=== PATIENT | female | born 1960 | race Caucasian/White ===

== ENCOUNTER 2016-07-13 21:36 | Emergency (ER) | payer OTHER ==
[~2016-07-13] VITALS: Ht 154.9 cm; Wt 81.8 kg
[~2016-07-13 21:36] MED LIST: GLIP10 PO; LISI-661 PO; METF500T4 PO; SIMV-260 PO
[2016-07-13] MEDS ORDERED: LORazepam 1 MG TABLET PO ONE (22:15)
[2016-07-13 23:11] VITALS: BP 162/88
== END 2016-07-13 23:17 | disposition home or self-care (01) ==
LOC: EMS 21:38
DX: F41.9 Anxiety disorder, unspecified (principal); E11.9 Type 2 diabetes mellitus without complications; I10 Essential (primary) hypertension; E78.00 Pure hypercholesterolemia, unspecified
CPT/HCPCS: 82962; 99283